=== PATIENT | female | born 1960 | race American Indian/Alaskan Native ===

== ENCOUNTER 2018-10-22 12:06 | Emergency (ER) | payer SELFPAY ==
[2018-10-22] MEDS ORDERED: NACL 0.9% 1000 ML 1,000 ML IV ONE (12:54)
[2018-10-22 13:25] LABS: Basophils % (Auto) 0.9 % (0.0-1.8); Eosinophils # (Auto) 0.1 K/mm3 (0.0-0.4); Eosinophils % (Auto) 2.9 % (0.0-4.3); Hematocrit 34.6 % (30.3-42.9); Hemoglobin 11.1 gm/dl (10.1-14.3); Mean Corpuscular HGB Conc 32 % (30-34); Monocytes # (Auto) 0.5 K/mm3 (0.0-0.8); Monocytes % (Auto) 11.2 % (0.0-7.3); Platelet Count 289 K/mm3 (140-440); Red Blood Count 4.97 M/mm3 (3.65-5.03)
[2018-10-22 13:31] LABS: Mean Corpuscular Volume 70 fl (79-97)
[2018-10-22 13:35] LABS: INR 1.31 (0.87-1.13)
[2018-10-22 13:36] LABS: Partial Thromboplastin Time 25.2 Sec. (24.2-36.6)
--- NOTE | 2018-10-22 13:41 | Cat Scan Report ---
NONENHANCED CT SCAN OF THE BRAIN: INDICATION: Dizziness; pain and weakness in the left arm TECHNIQUE: Routine CT head without contrast. Sagittal and coronal reformatted images were obtained. A ll CT scans at this location are performed using CT dose reduction for ALARA by means of automated ex posure control. COMPARISON: None. FINDINGS: BRAIN / INTRACRANIAL CONTENTS: No acute hemorrhage, mass effect, midline shift, hydrocephalus, or acu te, large territorial infarct. Lacunar infarctions are seen in the basal ganglia bilaterally. Chronic lacunae are seen in both basal ganglia. However, unable to determine the age of lacune seen in the left thalamus. Chronic ischemic areas seen in the avery. Extensive periventricular low density areas a re seen in both cerebral hemispheres. High convexity cortical sulci are well preserved. CRANIOCERVICAL JUNCTION: No significant abnormality. ORBITS: Bony remodeling is seen along the medial wall of left orbit. This could be congenital or coul d be old healed fracture. SINUSES / MASTOIDS: Mucosal thickening is seen in one of the inferior ethmoid air cells on the right side. ADDITIONAL FINDINGS: None. IMPRESSION: I do not see an acute parenchymal Do not see hemorrhage or acute territorial infarction. Chronic lacune in both basal ganglia; however, I am unable to determine the age of the lacune in the right thalamus. Signer Name: Angely Bates MD Signed: 10/22/2018 1:36 PM Workstation Name: [id number]
[2018-10-22 13:46] LABS: BUN/Creatinine Ratio 26; Blood Urea Nitrogen 13 mg/dL (7-17); Calcium 9.8 mg/dL (8.4-10.2); Hemolysis Index 43
[2018-10-22 15:06] LABS: Bilirubin,Urine NEG (Negative); Blood,Urine NEG (Negative); Color,Urine Yellow (Yellow); Mucus,Urine 1+ /HPF; Protein,Urine <15 mg/dL mg/dL (Negative); Urobilinogen,Urine < 2.0 mg/dL (<2.0)
[2018-10-22] MEDS ORDERED: ULTRAM PO ONE (15:45)
--- NOTE | 2018-10-22 15:47 | Emergency Department Report ---
ED Syncope HPI - General Chief Complaint: Dizziness Stated Complaint: DIZZINESS Time Seen by Provider: 10/22/18 12:20 Source: patient, EMS - History of Present Illness Initial Comments: 57-year-old female with history of CVA presents to the ED with dizziness and lightheadedness while at [facility]. Although patient reports reason for coming to ED is because she was feeling lightheaded, it seems that patient's main concern is the chronic left shoulder pain due to rotator cuff problems, as I had to ask her about her episode in [facility] to get her to give details about it instead of details about her shoulder pain. Patient reports she began to feel lightheaded while in the store. Reports associated mild headache. Denies fever, chest pain, shortness of breath, N/V/D. Pt has some residual right-sided weakness and slurred speech from her previous CVA, however, pt denies any new neuro deficits. Pt states she recently moved here from [place] and does not currently have a PCP. Timing/Prior Episodes: single episode today Precipitating Factors: Positive: lightheadedness Context: standing Loss of Consciousness: no loss of consciousness Current Symptoms: headache, lightheadedness. denies: chest pain, diaphoresis, nausea - Related Data Allergies/Adverse Reactions: Allergies Penicillins Allergy (Verified 10/22/18 12:25) Unknown Home Medications: Ambulatory Orders Naproxen [Naprosyn] 500 mg PO BID #20 tablet 10/22/18 traMADol [Ultram] 50 mg PO Q6HR PRN #7 tablet 10/22/18 ED Review of Systems ROS: Stated complaint: DIZZINESS Other details as noted in HPI Comment: All other systems reviewed and negative Constitutional: denies: chills, fever Respiratory: denies: shortness of breath Cardiovascular: denies: chest pain Gastrointestinal: denies: abdominal pain, nausea, vomiting, diarrhea Neurological: headache ED Past Medical Hx - Past Medical History Previous Medical History?: Yes Hx Hypertension: Yes - Social History Smoking Status: Former Smoker - Medications Home Medications: Home Medications Medication Instructions Recorded Confirmed Last Taken Type Naproxen [Naprosyn] 500 mg PO BID #20 tablet 10/22/18 Unknown Rx traMADol [Ultram] 50 mg PO Q6HR PRN #7 tablet 10/22/18 Unknown Rx ED Physical Exam - General Limitations: No Limitations General appearance: alert, in no apparent distress - Head Head exam: Present: atraumatic, normocephalic - Eye Eye exam: Present: normal appearance, PERRL, EOMI - ENT ENT exam: Present: mucous membranes moist - Neck Neck exam: Present: normal inspection - Respiratory Respiratory exam: Present: normal lung sounds bilaterally. Absent: respiratory distress - Cardiovascular Cardiovascular Exam: Present: regular rate, normal rhythm - GI/Abdominal GI/Abdominal exam: Present: soft. Absent: distended, tenderness - Extremities Exam Extremities exam: Present: normal inspection, other (pain with ROM of left shoulder) - Neurological Exam Neurological exam: Present: alert, oriented X3, motor sensory deficit (weakness in right leg secondary to prior CVA) - Psychiatric Psychiatric exam: Present: normal affect, normal mood - Skin Skin exam: Present: warm, dry, intact, normal color. Absent: rash ED Course Vital Signs 10/22/18 10/22/18 10/22/18 12:20 12:25 13:03 Temperature 97.8 F Pulse Rate 85 82 Respiratory 14 15 18 Rate Blood Pressure 133/105 149/86 [Left] O2 Sat by Pulse 99 99 98 Oximetry 10/22/18 15:55 Temperature Pulse Rate 74 Respiratory 16 Rate Blood Pressure 158/90 [Left] O2 Sat by Pulse 98 Oximetry ED Medical Decision Making - Lab Data Result diagrams: 10/22/18 13:12 10/22/18 13:12 - EKG Data -: EKG Interpreted by Ut EKG shows normal: sinus rhythm, axis, intervals, QRS complexes, ST-T waves Rate: normal - EKG Data Interpretation: [facility] - Radiology Data Radiology results: report reviewed, image reviewed - Medical Decision Making - no new neuro deficits - complains of chronic left shoulder pain, ultram given - CT Head negative for any acute findings - pt orthostatic, HR increased w/ standing and pt reported feeling dizzy - pt given IV fluid bolus, feeling much better at this time - advised to drink plenty fluids, aicha if out in the heat - return precautions given - will give outpt f/u referrals - Differential Diagnosis migraine KHAN, tension KHAN, dehydration, arrythmia Critical care attestation.: If time is entered above; I have spent that time in minutes in the direct care of this critically ill patient, excluding procedure time. ED Disposition Clinical Impression: Orthostatic dizziness Disposition: DC-01 TO HOME OR SELFCARE Is pt being admited?: No Condition: Stable Instructions: Near Syncope (ED), Lightheadedness (ED) Prescriptions: Naproxen [Naprosyn] 500 mg PO BID #20 tablet traMADol [Ultram] 50 mg PO Q6HR PRN #7 tablet PRN Reason: Pain Referrals: [facility] MD JONE [Primary Care Provider] - 3-5 Days CARMEN GROSS MD [Staff Physician] - 3-5 Days [facility] [Outside] - 3-5 Days DARRIUS LINARES MD [Staff Physician] - 3-5 Days Time of Disposition: 15:50
[2018-10-22 17:20] VITALS: BP 158/90
== END 2018-10-22 16:30 | disposition home or self-care (01) ==
LOC: ED 12:06
DX: R42 Dizziness and giddiness (principal); I10 Essential (primary) hypertension
CPT/HCPCS: 36415; 70450; 80048; 81001; 84484; 85025; 85610; 85730; 87086; 93005; 93010; 96360; 96361; 99284; J7030